=== PATIENT | female | born 2000 | race Two or more races ===

== ENCOUNTER 2023-08-20 01:46 | Emergency (ER) | payer MEDICAID ==
[~2023-08-20] VITALS: Ht 165.1 cm; Wt 90.0 kg
[2023-08-20 05:24] VITALS: BP 132/86; PULSE 92; RESP 18; TEMP 98.2; O2SAT 97
== END 2023-08-20 05:24 | disposition home or self-care (01) ==
LOC: ER 01:46
DX: F10.10 Alcohol abuse, uncomplicated (principal); R51.9 Headache, unspecified; Z79.899 Other long term (current) drug therapy
CPT/HCPCS: 82962